=== PATIENT | male | born 1970 | race Caucasian/White ===

== ENCOUNTER 2021-02-15 22:08 | Emergency (ER) | payer BC ==
[2021-02-15] MEDS ORDERED: Lidocaine 1% 10 ML MDV INJECT ONE (22:25)
--- NOTE | 2021-02-15 22:27 | EDM.PDOC ---
ED HPI GENERAL MEDICAL PROBLEM - General Chief Complaint: Laceration Stated Complaint: HEAD LAC Time Seen by Provider: 02/15/21 22:13 Source of Information: Reports: Patient, RN Notes Reviewed History Limitations: Reports: No Limitations - History of Present Illness INITIAL COMMENTS - FREE TEXT/NARRATIVE: Patient is a 50-year-old male presenting to the emergency department for complaints of laceration to his right parietal head. Reports that he had bent over to pick something up and stood up, hitting his head on the bottom of an open cabinet door. Denies any significant headache, vision changes, loss of conscious, nausea, or vomiting. Is unsure when his last tetanus vaccination was. - Related Data Allergies Allergy/AdvReac Type Severity Reaction Status Date / Time No Known Allergies Allergy Verified 02/15/21 22:19 Past Medical History - Past Health History Medical/Surgical History: Denies Medical/Surgical History Social & Family History - Tobacco Use Tobacco Use Status *Q: Never Tobacco User Second Hand Smoke Exposure: No - Recreational Drug Use Recreational Drug Use: No ED ROS GENERAL - Review of Systems Review Of Systems: Comprehensive ROS is negative, except as noted in HPI. ED EXAM, SKIN/RASH Exam: See Below General Appearance: Alert, WD/WN, No Apparent Distress Head: Other (3 cm slightly gaping laceration to the right parietal head. Small amount of active bleeding.) Respiratory/Chest: No Respiratory Distress, Lungs Clear, Normal Breath Sounds, No Accessory Muscle Use, Chest Non-Tender Cardiovascular: Normal Peripheral Pulses, Regular Rate, Rhythm, No Edema, No Gallop, No JVD, No Murmur, No Rub Neurological: Alert, Oriented, CN II-XII Intact, Normal Cognition, Normal Gait, Normal Reflexes, No Motor/Sensory Deficits Psychiatric: Normal Affect, Normal Mood ED SKIN PROCEDURES - Laceration/Wound Repair Right Head Appearance: Subcutaneous Anesthetic Type: Local Local Anesthesia - Lidocaine (Xylocaine): 1% Plain Local Anesthetic Volume: 2cc Skin Prep: Chlorhexidine (Hibiciens), Saline Exploration/Debridement/Repair: Wound Explored, In a Bloodless Field, Explored to Base, No Foreign Material Found Closed with: Dorina Lac/Wound length In cm: 3 # of Sutures: 5 Sterile Dressing Applied: None Tetanus Status Addressed: Yes Complications: No Course - Vital Signs Last Recorded V/S: Last Vital Signs Temp 97.6 F 02/15/21 22:13 Pulse 75 02/15/21 22:13 Resp 16 02/15/21 22:13 BP 155/98 H 02/15/21 22:13 Pulse Ox 99 02/15/21 22:13 - Orders/Labs/Meds Meds: Medications Discontinued Medications Generic Name Dose Route Start Last Admin Trade Name Viviana PRN Reason Stop Dose Admin Lidocaine HCl 10 ml 02/15/21 22:25 Lidocaine 1% 10 Ml Mdv INJECT 02/15/21 22:26 ONETIME ONE - Re-Assessments/Exams Free Text/Narrative Re-Assessment/Exam: Patient is a 50-year-old male presenting to the emergency department with complaints of laceration to his right parietal head. On exam, patient has a 3 cm, slightly gaping laceration. States that his tetanus vaccination has been less than 10 years. I have ordered lidocaine preparation for dorina. Departure - Departure Time of Disposition: 22:42 Disposition: Home, Self-Care 01 Condition: Good Clinical Impression: Scalp laceration Qualifiers: Encounter type: initial encounter Qualified Code(s): S01.01XA - Laceration without foreign body of scalp, initial encounter - Discharge Information *PRESCRIPTION DRUG MONITORING PROGRAM REVIEWED*: No *COPY OF PRESCRIPTION DRUG MONITORING REPORT IN PATIENT MEHRDAD: No Instructions: Laceration Care, Adult Referrals: PCP,Not In Area [Primary Care Provider] - Forms: ED Department Discharge Additional Instructions: You were seen in the emergency department today for a laceration to your head. The wound was cleansed and closed with 5 dorina. These should stay intact for 7 days. After that time they may be removed in the clinic by a nurse. Keep the wound clean and dry. Wash with normal soap and water twice daily. Do not submerge the wound in water. Watch for signs of infection including increased redness, swelling, or purulent drainage. If these should occur, you should be seen either in the clinic or in the emergency department as antibiotic treatment may be needed. Return to the ER as needed. Sepsis Event Note (ED) - Evaluation Sepsis Screening Result: No Definite Risk - Focused Exam Vital Signs: Vital Signs Temp Pulse Resp BP Pulse Ox 02/15/21 22:13 97.6 F 75 16 155/98 H 99
[2021-02-15] MEDS ORDERED: Diphtheria,Pertussis(Acell),Tetanus Vaccine 0.5 ML Syringe IM ONE (22:41)
== END 2021-02-15 23:00 | disposition home or self-care (01) ==
LOC: JD.ED 22:08
DX: S01.01XA Laceration without foreign body of scalp, initial encounter (principal); Z23 Encounter for immunization; W22.09XA Striking against other stationary object, initial encounter
CPT/HCPCS: 12002; 90471; 90715; 99282; 99282-25

== ENCOUNTER 2021-07-02 16:40 | Emergency (ER) | payer BC ==
[2021-07-02] MEDS ORDERED: Adenosine 12 MG/4 ML SDV ONE (16:51)
[2021-07-02] MEDS ORDERED: Adenosine 6 MG/2 ML SDV ONE (16:51)
[2021-07-02] MEDS ORDERED: Adenosine 6 MG/2 ML SDV IVPUSH ONE (16:57)
[2021-07-02] MEDS ORDERED: Metoprolol Tartrate 5 MG/5 ML SDV IVPUSH ONE (16:58)
[2021-07-02] MEDS ORDERED: Metoprolol Tartrate 5 MG/5 ML SDV ONE (16:59)
[2021-07-02] MEDS ORDERED: Magnesium Oxide 400 MG Tab PO ONE (18:14)
--- NOTE | 2021-07-02 19:57 | EDM.PDOC ---
ED HPI GENERAL MEDICAL PROBLEM - General Chief Complaint: Cardiovascular Problem Stated Complaint: FAST HEART RATE Time Seen by Provider: 07/02/21 16:40 - History of Present Illness INITIAL COMMENTS - FREE TEXT/NARRATIVE: 50-year-old male presents to the emergency room with a rapid heartbeat. The patient has not felt right for the last several hours prior to arrival. He has had a little bit of chest tightness no significant chest pain with this. No diaphoresis nausea or vomiting. No breathing difficulties. The patient was recently admitted to [facility] in [place] with a rapid heart rate and had a pretty extensive work-up. He is scheduled to have a Zio patch placed on Sunday. He was not placed on any medication while at [facility]. The patient thinks he drank more coffee than usual today and he was out hunting. - Related Data Allergies Allergy/AdvReac Type Severity Reaction Status Date / Time No Known Allergies Allergy Verified 07/02/21 16:55 Home Meds: Home Meds Metoprolol Tartrate [Lopressor] 25 mg PO Q12HR #60 tab 07/02/21 [Rx] Past Medical History - Past Health History Medical/Surgical History: Denies Medical/Surgical History ED ROS GENERAL - Review of Systems Review Of Systems: Comprehensive ROS is negative, except as noted in HPI. ED EXAM, GENERAL - Physical Exam Exam: See Below Exam Limited By: No Limitations General Appearance: Alert, No Apparent Distress Head: Atraumatic, Normocephalic Neck: Normal Inspection, Supple, Non-Tender, Full Range of Motion Respiratory/Chest: No Respiratory Distress, Lungs Clear, Normal Breath Sounds Cardiovascular: Regular Rate, Rhythm, No Edema, No Murmur, No Rub, Other (After medical cardioversion heart sounds were normal) GI/Abdominal: Normal Bowel Sounds, Soft, Non-Tender, No Organomegaly, No Distention, No Abnormal Bruit, No Mass Back Exam: Normal Inspection, Full Range of Motion. No: CVA Tenderness (L), CVA Tenderness (R) Extremities: Normal Inspection, No Pedal Edema Neurological: Alert, Oriented, Normal Cognition #1 Interpretation EKG Date: 07/02/21 Rhythm: Other (Supraventricular tachycardia) Rate (Beats/Min): 178 Harper: Normal P-Wave: Present ([place] to be present integrated with T wave) QRS: Normal ST-T: Other (Repolarization abnormality) QT: Normal Comparison: NA - No Prior EKG EKG Interpretation Comments: Abnormal EKG #2 Interpretation EKG Date: 07/02/21 Rhythm: Other (Sinus tach) Rate (Beats/Min): 104 Harper: Normal P-Wave: Present QRS: Normal ST-T: Normal QT: Normal Comparison: Change From Previous EKG (SVT from earlier today resolved) EKG Interpretation Comments: Mostly normal EKG Course - Vital Signs Last Recorded V/S: Last Vital Signs Temp 36.6 C 07/02/21 16:52 Pulse 69 07/02/21 20:52 Resp 18 07/02/21 20:17 BP 117/79 07/02/21 20:52 Pulse Ox 100 07/02/21 20:17 - Orders/Labs/Meds Orders: Active Orders 24 hr Category Date Time Status Chest 1V Frontal [CR] Stat Exams 07/02/21 17:07 Taken Labs: Laboratory Tests 07/02/21 07/02/21 07/02/21 Range/Units 17:07 17:07 17:07 WBC 9.00 (4.23-9.07) K/mm3 RBC 4.91 (4.63-6.08) M/mm3 Hgb 15.1 (13.7-17.5) gm/dl Hct 43.4 (40.1-51.0) % MCV 88.4 (79.0-92.2) fl MCH 30.8 (25.7-32.2) pg MCHC 34.8 (32.2-35.5) g/dl RDW Std Deviation 41.6 (35.1-43.9) fL Plt Count 262 (163-337) K/mm3 MPV 10.8 (9.4-12.3) fl Neut % (Auto) 61.6 (34.0-67.9) % Lymph % (Auto) 27.7 (21.8-53.1) % [place] % (Auto) 9.7 (5.3-12.2) % Eos % (Auto) 0.6 L (0.8-7.0) Baso % (Auto) 0.2 (0.1-1.2) % Neut # (Auto) 5.55 H (1.78-5.38) K/mm3 Lymph # (Auto) 2.49 (1.32-3.57) K/mm3 [place] # (Auto) 0.87 H (0.30-0.82) K/mm3 Eos # (Auto) 0.05 (0.04-0.54) K/mm3 Baso # (Auto) 0.02 (0.01-0.08) K/mm3 PT 10.9 (9.7-12.0) SECONDS INR 0.98 APTT 28.3 (21.7-31.4) SECONDS D-Dimer, Quantitative < 0.19 L (0.19-0.50) mg/L Sodium 142 (136-145) mEq/L Potassium 3.9 (3.5-5.1) mEq/L Chloride 104 (98-107) mEq/L Carbon Dioxide 26 (21-32) mEq/L Anion Gap 15.9 H (5-15) BUN 15 (7-18) mg/dL Creatinine 1.2 (0.7-1.3) mg/dL Est Cr Clr Drug Dosing 73.65 mL/min Estimated GFR (MDRD) > 60 (>60) mL/min BUN/Creatinine Ratio 12.5 L (14-18) Glucose 148 H (70-99) mg/dL Calcium 8.9 (8.5-10.1) mg/dL Magnesium 1.8 (1.8-2.4) mg/dL Total Bilirubin 0.4 (0.2-1.0) mg/dL AST 21 (15-37) U/L ALT 35 (16-63) U/L Alkaline Phosphatase 39 L (46-116) U/L Troponin I < 0.017 (0.00-0.056) ng/mL Total Protein 7.1 (6.4-8.2) g/dl Albumin 4.1 (3.4-5.0) g/dl Globulin 3.0 gm/dL Albumin/Globulin Ratio 1.4 (1-2) TSH 3rd Generation 2.621 (0.358-3.74) uIU/mL 07/02/21 Range/Units 19:30 WBC (4.23-9.07) K/mm3 RBC (4.63-6.08) M/mm3 Hgb (13.7-17.5) gm/dl Hct (40.1-51.0) % MCV (79.0-92.2) fl MCH (25.7-32.2) pg MCHC (32.2-35.5) g/dl RDW Std Deviation (35.1-43.9) fL Plt Count (163-337) K/mm3 MPV (9.4-12.3) fl Neut % (Auto) (34.0-67.9) % Lymph % (Auto) (21.8-53.1) % [place] % (Auto) (5.3-12.2) % Eos % (Auto) (0.8-7.0) Baso % (Auto) (0.1-1.2) % Neut # (Auto) (1.78-5.38) K/mm3 Lymph # (Auto) (1.32-3.57) K/mm3 [place] # (Auto) (0.30-0.82) K/mm3 Eos # (Auto) (0.04-0.54) K/mm3 Baso # (Auto) (0.01-0.08) K/mm3 PT (9.7-12.0) SECONDS INR APTT (21.7-31.4) SECONDS D-Dimer, Quantitative (0.19-0.50) mg/L Sodium (136-145) mEq/L Potassium (3.5-5.1) mEq/L Chloride (98-107) mEq/L Carbon Dioxide (21-32) mEq/L Anion Gap (5-15) BUN (7-18) mg/dL Creatinine (0.7-1.3) mg/dL Est Cr Clr Drug Dosing mL/min Estimated GFR (MDRD) (>60) mL/min BUN/Creatinine Ratio (14-18) Glucose (70-99) mg/dL Calcium (8.5-10.1) mg/dL Magnesium (1.8-2.4) mg/dL Total Bilirubin (0.2-1.0) mg/dL AST (15-37) U/L ALT (16-63) U/L Alkaline Phosphatase (46-116) U/L Troponin I < 0.017 (0.00-0.056) ng/mL Total Protein (6.4-8.2) g/dl Albumin (3.4-5.0) g/dl Globulin gm/dL Albumin/Globulin Ratio (1-2) TSH 3rd Generation (0.358-3.74) uIU/mL Meds: Medications Discontinued Medications Generic Name Dose Route Start Last Admin Trade Name Viviana DENISE Reason Stop Dose Admin Adenosine Confirm 07/02/21 16:51 07/02/21 16:58 Adenosine 6 Mg/2 Ml Sdv Administered 07/02/21 16:52 Not Given Dose 6 mg .ROUTE .STK-MED ONE Adenosine Confirm 07/02/21 16:51 07/02/21 16:58 Adenosine 12 Mg/4 Ml Sdv Administered 07/02/21 16:52 Not Given Dose 12 mg .ROUTE .STK-MED ONE Adenosine 6 mg 07/02/21 16:57 07/02/21 16:58 Adenosine 6 Mg/2 Ml Sdv IVPUSH 07/02/21 16:58 6 mg NOW ONE Administration Magnesium Oxide 800 mg 07/02/21 18:14 07/02/21 18:27 Magnesium Oxide 400 Mg Tab PO 07/02/21 18:15 800 mg ONETIME ONE Administration Metoprolol Tartrate 5 mg 07/02/21 16:58 07/02/21 17:02 Metoprolol Tartrate 5 Mg/5 Ml Sdv IVPUSH 07/02/21 16:59 5 mg ONETIME ONE Administration Metoprolol Tartrate Confirm 07/02/21 16:59 07/02/21 17:03 Metoprolol Tartrate 5 Mg/5 Ml Sdv Administered 07/02/21 17:00 Not Given Dose 5 mg .ROUTE .STK-MED ONE Metoprolol Tartrate 25 mg 07/02/21 20:46 07/02/21 20:52 Metoprolol Tartrate 25 Mg Tab PO 07/02/21 20:47 25 mg ONETIME ONE Administration - Re-Assessments/Exams Free Text/Narrative Re-Assessment/Exam: 07/02/21 20:55 The patient has done well upon presenting to the emergency room he was in SVT with a rate of 178 oftentimes up as high as 190s. He was given 6 mg grams of adenosine and promptly converted to a sinus rate of about 100 and this gradually worked itself down into the 70s. Laboratory evaluation showed borderline low magnesium he was given 800 mg of magnesium advised to start daily 400 mg magnesium oxide. His troponin was negative I observed him for several hours and checked a follow-up troponin that was also negative. His condition remained stable throughout his stay. I discussed the situation with Dr. Fierro on-call business analysis professional at [facility] in [place] who thought placing the patient on metoprolol 25 mg twice daily would be quite appropriate and would not necessarily interfere with the patient getting placed on a Zio patch on Sunday. She did request that we provide him copies of the EKGs for him to bring to his next cardiology appointment. Departure - Departure Time of Disposition: 20:57 Disposition: Home, Self-Care 01 Clinical Impression: Supraventricular tachycardia Prescriptions: Metoprolol Tartrate [Lopressor] 25 mg PO Q12HR #60 tab Instructions: Supraventricular Tachycardia, Adult, [id number] Referrals: PCP,Not In Area [Primary Care Provider] - Forms: ED Department Discharge Additional Instructions: Return to the emergency room with any questions problems or worsening symptoms. I [place] electronic [place] for the Lopressor, or metoprolol, take 1 twice daily your first dose was given here in the emergency room take your next dose in the morning. If you are not feeling well your pulse gets too low or your blood pressure drop is not tolerated decrease your Lopressor to a half a pill twice daily. Proceed to get the Zio patch placed on Sunday. And follow-up with cardiology as directed. I have given you copies of your EKG today, take these with you to your cardiology appointment. Sepsis Event Note (ED) - Evaluation Sepsis Screening Result: No Definite Risk - Focused Exam Vital Signs: Vital Signs Temp Pulse Pulse Resp BP BP Pulse Ox 07/02/21 20:52 69 117/79 07/02/21 20:17 68 18 122/74 100 07/02/21 17:02 102 H 141/105 H 07/02/21 16:52 36.6 C 189 H 16 124/93 H 98 - My Orders Last 24 Hours: My Active Orders 07/02/21 17:07 Chest 1V Frontal [CR] Stat - Assessment/Plan Last 24 Hours: My Active Orders 07/02/21 17:07 Chest 1V Frontal [CR] Stat
[2021-07-02] MEDS ORDERED: Metoprolol Tartrate 25 MG Tab PO ONE (20:46)
--- NOTE | 2021-07-03 11:22 | CR ---
Chest: Portable view of the chest was obtained. Comparison: Prior chest x-ray of 12/15/15. Heart size and mediastinum are normal. Lungs are clear with no acute parenchymal change. Bony structures show nothing acute. Impression: 1. Nothing acute is seen on portable chest x-ray. 2. If patient remains symptomatic, follow-up PA and lateral study is recommended. Diagnostic code #1
== END 2021-07-02 21:04 | disposition home or self-care (01) ==
LOC: JD.ED 16:40
DX: I47.1 Supraventricular tachycardia (principal)
CPT/HCPCS: 36415; 71045; 80053; 83735; 84443; 84484; 85025; 85379; 85610; 85730; 93005; 96374; 96375; 99285; A9270; J0153; J3490